=== PATIENT | male | born 1960 | race Caucasian/White ===

== ENCOUNTER 2017-06-14 09:57 | Outpatient (RCR) | payer BC | END 2017-09-12 | disposition home or self-care (01) | LOC: CARDREHAB | DX: Z48.812 Encounter for surgical aftercare following surgery on the circulatory system (principal); Z95.1 Presence of aortocoronary bypass graft ==

== ENCOUNTER 2024-08-14 04:38 | Emergency (ER) | payer BC ==
[~2024-08-14] VITALS: Ht 167.6 cm; Wt 72.8 kg
[~2024-08-14 04:38] MED LIST: DALFAMPRIDINE E10 MG PO; DEXAMETHASONE6 M1 PO; EZETIMIBE10 M1 PO; MESALAMINE1000 MG RC; OCREVUS300 MG/10 IV; PAXLOVID CO-PA1 EACH PO; ROSUVASTATIN CA20 MG PO
[2024-08-14] MEDS ORDERED: FLOMAX0.4 MG PO (04:47)
[2024-08-14] MEDS ORDERED: BACLOFEN5 MG PO (04:48)
[2024-08-14] MEDS ORDERED: CEPHALEXIN500 M1 PO (06:38)
[2024-08-14 06:39] LABS: URINE APPEARANCE CLOUDY (CLEAR); URINE BILIRUBIN NEGATIVE (NEGATIVE); URINE COLOR YELLOW (YELLOW); URINE GLUCOSE NEGATIVE (NEGATIVE); URINE KETONE NEGATIVE (NEGATIVE); URINE NITRATE NEGATIVE (NEGATIVE); URINE PROTEIN(semi-quant) NEGATIVE (NEGATIVE)
[2024-08-14 06:40] LABS: URINE BLOOD 2+ (NEGATIVE); URINE LEUKOCYTE ESTERASE 1+ (NEGATIVE); URINE WBC >50 /hpf (0-3)
[2024-08-14 06:53] VITALS: BP 105/63
[2024-08-14] MEDS ORDERED: FLUTICASONE P15.8 ML NS (18:13)
== END 2024-08-14 06:52 | disposition home or self-care (01) ==
LOC: ED 04:38
PROVIDERS: Family Medicine
DX: R33.9 Retention of urine, unspecified (principal)
CPT/HCPCS: A4314; A4340

== ENCOUNTER 2024-08-14 17:11 | Emergency (ER) | payer BC ==
[~2024-08-14] VITALS: Ht 167.6 cm; Wt 72.7 kg
[~2024-08-14 17:11] MED LIST changes: +BACLOFEN5 MG PO; +CEPHALEXIN500 M1 PO; +FLOMAX0.4 MG PO
[2024-08-14 17:30] LABS: HEMOGLOBIN 13.5 g/dL (13.5-18.0); MEAN CELL VOLUME 93 fl (78-100); MEAN CORPUSCULAR HEMOGLOBIN 32 pg (27-31); MEAN CORPUSCULAR HGB CONC 34 g/dL (33-37); MEAN PLATELET VOLUME 8.8 fl (7.4-10.4); PLATELET COUNT 220 K/mm3 (130-400); RED BLOOD COUNT 4.29 M/mm3 (4.20-5.60); RED CELL DISTRIBUTION WIDTH 12.8 % (11.5-14.5); WHITE BLOOD COUNT 14.1 K/mm3 (4.8-10.8)
[2024-08-14 17:33] LABS: ALBUMIN 3.5 g/dL (3.4-4.8)
[2024-08-14 17:35] LABS: CALCIUM 8.7 mg/dL (8.3-10.5)
[2024-08-14 17:36] LABS: TOTAL PROTEIN 6.2 g/dL (6.2-8.1)
[2024-08-14 17:38] LABS: TOTAL BILIRUBIN 0.4 mg/dL (0.2-1.2)
[2024-08-14 17:58] LABS: BAND 5 % (0-10); LYMPHOCYTE 5 % (20-51); MONOCYTE 3 % (3-10); NEUTROPHILS 87 % (42-75)
[2024-08-14 17:59] LABS: RSV RAPID MOLECULAR IN HOUSE NEGATIVE (NEGATIVE)
[2024-08-14] MEDS ORDERED: FLUTICASONE P15.8 ML NS (18:13)
[2024-08-14] MEDS ORDERED: cefTRIAXone 1 G in Water For Injection,Sterile 10 ML IV ONE (18:30)
[2024-08-14 18:35] VITALS: BP 90/51
== END 2024-08-14 18:40 | disposition home or self-care (01) ==
LOC: ED 17:11
PROVIDERS: Family Medicine
DX: J06.9 Acute upper respiratory infection, unspecified (principal); R11.2 Nausea with vomiting, unspecified; Z95.1 Presence of aortocoronary bypass graft
CPT/HCPCS: J0696; J2765; J7120